=== PATIENT | male | born 1970 | race Caucasian/White ===

== ENCOUNTER 2017-07-19 00:53 | Emergency (ER) | payer SELFPAY ==
[2017-07-19 00:54] VITALS: BP 172/111; PULSE 89; RESP 17; TEMP 36.9; O2SAT 98; BMI 36.6
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
[2017-07-19 02:04] LABS: Absolute Lymphocyte Count 1.49 X10^3/ul (0.83-4.51); Absolute Neutrophil Count 3.6 X10^3/uL (2.0-7.7); Basophil# 0.03 X10^3/uL; Basophil% 0.4 % (0-1); Eosinophil# 0.05 X10^3/uL; Eosinophils% 0.7 % (0-5); Hematocrit 40.4 % (40-54); Hemoglobin 16.2 g/dl (13.0-16.5); Lymphocyte # 1.49 X10^3/ul (4.0); Lymphocyte % 21.1 % (19-41); Mean Corp Hgb Conc 40.1 g/gl (32-36); Mean Corpuscular Hgb 33.7 pg (27.0-32.0); Mean Platelet Vol. 10.8 fl (6.2-12.0); Monocyte# 1.84 X10^3/uL; Monocyte% 26.1 % (0-10); Neutrophil # 3.64 X10^3/uL (2.7-7.7); Neutrophil % 51.6 % (47-70); Platelet Count 230 K/mm3 (150-450); RBC Distribution Width CV 13.7 % (11.6-14.6); RBC Distribution Width SD 41.3 fl (35.1-43.9); Red Blood Count 4.81 M/mm3 (4.6-6.2); White Blood Count 7.1 K/mm3 (4.4-11.0)
[2017-07-19 02:06] VITALS: BP 153/105; PULSE 89; RESP 17; O2SAT 95
[2017-07-19 02:06] LABS: Differential Indicated SCAN CRITERIA MET; POSITIVE COUNT YES; POSITIVE DIFFERENTIAL YES; POSITIVE MORPHOLOGY YES
[2017-07-19 02:11] LABS: Bedside Glucose 179 mg/dL (70-110)
[2017-07-19 02:20] LABS: Differential Comment SCANNED
[2017-07-19 02:21] LABS: Reactive Lymphocyte 1+
[2017-07-19 03:43] LABS: Anion Gap 11 (5-15); BUN 12 mg/dL (7-18); Calcium,Total 8.4 mg/dL (8.5-10.1); Chloride 102 mmol/L (98-107); Creatinine, Serum 1.09 mg/dL (0.70-1.30); EST Glomerular Filtration Rate 77 mL/min (>60); Est Glom Filt Rate - Afr Amer 93 mL/min (>60); Estimated Creatinine Clearance 87.44 ml/min; Glucose 183 mg/dL (74-106); Potassium 4.9 mmol/L (3.5-5.1); Sodium Level 138 mmol/L (136-145)
[2017-07-19 03:57] VITALS: BP 149/90; PULSE 87; RESP 20; O2SAT 96
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
--- NOTE | 2017-07-19 04:10 | ED.RN ---
NO OLD EKG'S IN MUSE
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
[2017-07-19 04:23] VITALS: BP 146/97; PULSE 85; RESP 14; O2SAT 95
[2017-07-19 04:24] VITALS: BP 146/97; PULSE 92; RESP 17; O2SAT 98
== END 2017-07-19 04:30 | disposition home or self-care (01) ==
PROVIDERS: Emergency Provider Emergency Medicine
DX: S06.0X9A Concussion with loss of consciousness of unspecified duration, initial encounter (principal); M25.512 Pain in left shoulder; V49.9XXA Car occupant (driver) (passenger) injured in unspecified traffic accident, initial encounter; Y93.9 Activity, unspecified; Y92.9 Unspecified place or not applicable; Y99.9 Unspecified external cause status; E11.9 Type 2 diabetes mellitus without complications; Z79.84 Long term (current) use of oral hypoglycemic drugs; Z79.899 Other long term (current) drug therapy; Z87.19 Personal history of other diseases of the digestive system
CPT/HCPCS: 70450; 71045; 73030; 80048; 80320; 82962; 85025; 93005; 96360; 96361; 99284; J7040; A4216; G0480

== ENCOUNTER 2018-10-04 03:35 | Emergency (ER) | payer OTHER, SELFPAY ==
[2018-10-04 03:36] VITALS: BP 171/100; PULSE 107; RESP 18; TEMP 36.8; O2SAT 98; BMI 35.1
--- NOTE | 2018-10-04 03:59 | EKG12_ITS ---
Test Reason : SYNCOPE Blood Pressure : / mmHG Vent. Rate : 105 BPM Atrial Rate : 105 BPM P-R Int : 142 ms QRS Dur : 104 ms QT Int : 316 ms P-R-T Axes : 029 -16 019 degrees QTc Int : 417 ms Sinus tachycardia Minimal voltage criteria for LVH, may be normal variant Borderline ECG Confirmed by CLEMENTINE DE LEON ([id number]), editor in chief newspaper [employer] CANDELARIO ([id number]) on 10/06/2018 1:45:14 PM Referred By: VEL Confirmed By:CLEMENTINE DE LEON
--- NOTE | 2018-10-04 04:27 | CT_ITS ---
STUDY: CT BRAIN WITHOUT CONTRAST REASON FOR EXAM: Male, 48 years old. Headache and possible loss of consciousness at work. RADIATION DOSAGE (If Supplied By Facility): CTDIvol = ( 44.99 ) mGy, DLP = ( 762.36 ) mGycm TECHNIQUE: Transaxial CT imaging of the brain was performed without administration of intravenous contrast material. Individualized dose optimization techniques were used for this CT. COMPARISON: July 19, 2017. FINDINGS: Normal soft tissue structures. Normal calvarium. Normal size ventricles and extra-axial spaces for the patient's age. Normal white matter tracts of the cerebral hemispheres. Normal basal ganglia and thalami. Normal brainstem. Normal cerebellum. There is no intracranial hemorrhage. There are no findings of an acute ischemic infarction. Normal visualized paranasal sinuses. CT/Brain/Head without Contrast IMPRESSION: Normal unenhanced CT scan of the brain. Electronically Signed: Abdiel Sanders MD at 5:16 EDT , Service support ,
[2018-10-04 04:29] LABS: Absolute Lymphocyte Count 1.99 X10^3/ul (0.83-4.51); Absolute Neutrophil Count 4.4 X10^3/uL (2.0-7.7); Basophil# 0.02 X10^3/uL; Basophil% 0.3 % (0-1); Eosinophil# 0.07 X10^3/uL; Hematocrit 43.2 % (40-54); Hemoglobin 15.1 g/dl (13.0-16.5); Lymphocyte # 1.99 X10^3/ul (4.0); Lymphocyte % 29.4 % (19-41); Mean Corpuscular Hgb 29.3 pg (27.0-32.0); Mean Corpuscular Volume 83.7 fL (80-94); Mean Platelet Vol. 11.5 fl (6.2-12.0); Monocyte# 0.29 X10^3/uL; Monocyte% 4.3 % (0-10); Neutrophil # 4.38 X10^3/uL (2.7-7.7); Neutrophil % 64.6 % (47-70); Platelet Count 201 K/mm3 (150-450); RBC Distribution Width CV 12.7 % (11.6-14.6); RBC Distribution Width SD 38.6 fl (35.1-43.9); Red Blood Count 5.16 M/mm3 (4.6-6.2); White Blood Count 6.8 K/mm3 (4.4-11.0)
[2018-10-04 04:31] LABS: POSITIVE COUNT NO; POSITIVE DIFFERENTIAL NO; POSITIVE MORPHOLOGY NO
[2018-10-04 04:58] LABS: Anion Gap 10 (5-15); BUN 11 mg/dL (7-18); BUN/Creat Ratio 7.5 RATIO (10-20); Calcium,Total 9.6 mg/dL (8.5-10.1); Chloride 101 mmol/L (98-107); Creatinine, Serum 1.47 mg/dL (0.70-1.30); EST Glomerular Filtration Rate 55 mL/min (>60); Est Glom Filt Rate - Afr Amer 66 mL/min (>60); Estimated Creatinine Clearance 66.16 ml/min; Glucose 322 mg/dL (74-106); Potassium 4.8 mmol/L (3.5-5.1); Sodium Level 135 mmol/L (136-145)
[2018-10-04 05:13] VITALS: PULSE 99; RESP 16; O2SAT 97
--- NOTE | 2018-10-04 05:36 | ED.VISSUMM ---
- ER Visit Summary Date of Service: 10/04/18 Chief Complaint: Headache History of Present Illness: The patient is a 48 M who presents with headache and syncope. He does have a history of migraines. He recently switched to third shift. He had not eaten since about noon. He began to develop a headache at work. He took his usual medication which is Excedrin Migraine. He then had a syncopal episode. He states this did happen once 3 weeks ago. At that time it was attributed to hypoglycemia as his blood sugar was only 68 after oral glucose. He was evaluated at the emergency department at that time. Patient notes that after returning to consciousness today he was given 64 ounces of Mountain Dew which he quickly drank and his blood sugar was only 211 after that so he suspects that his blood sugar was low before. His headache is typical in character and location to previous migraines. Physical Examination: Heart rate 107 blood pressure 171/100 Moist mucous membranes Heart regular rate and rhythm Lungs clear Abdomen soft Alert No focal or lateralizing neurological deficits, normal strength and sensation Test Results: EKG shows sinus rhythm at a rate of 105. Labs notable for creatinine 1.47. Troponin is negative. CT the head is normal. Emergency Department Course and Treatment: An IV as well as fluids and Reglan was ordered. We are available to obtain blood but unable to establish an IV. Patient refused further attempts. I discussed that in addition I initially had ordered a CTA of the head to rule out aneurysm given his headache and syncope. Patient vocalized understanding and refuses further attempts at IV. He understands I cannot rule out aneurysm without CTA although CT of the head would be able to rule out hemorrhage. He vocalized understanding. He understands the associated risks. He states that this is very similar to his prior headaches and he truly does believe that this is just related to hypoglycemia. On reevaluation patient's resting comfortably. He understands return for new or worsening symptoms. The patient was discharged. Treatment Plan: [] Disposition: Discharge Impression: Headache This note was generated with popchips dictation software. It may contain incorrect words, spelling, and punctuation that were not noted in review of the chart prior to signing ED Disposition - Plan for ED Patient: Referrals: Care Physician,No Primary [Primary Care Provider] -
--- NOTE | 2018-10-04 05:38 | ED.DEP ---
ED Disposition - Plan for ED Patient: Instructions: SYNCOPE, Unk Cause, HEADACHE, Unspecified Referrals: Care Physician,No Primary [Primary Care Provider] -
[2018-10-04 05:56] VITALS: BP 134/95; PULSE 94; RESP 18; O2SAT 97
== END 2018-10-04 06:09 | disposition home or self-care (01) ==
LOC: ED 04:26
PROVIDERS: Emergency Provider Emergency Medicine
DX: G43.909 Migraine, unspecified, not intractable, without status migrainosus (principal); R55 Syncope and collapse; E66.9 Obesity, unspecified; E11.9 Type 2 diabetes mellitus without complications; E78.00 Pure hypercholesterolemia, unspecified; Z79.84 Long term (current) use of oral hypoglycemic drugs; Z79.899 Other long term (current) drug therapy
CPT/HCPCS: 70450; 80048; 84484; 85025; 93005; 99285; A4216

== ENCOUNTER 2024-05-30 22:41 | Emergency (ER) | payer SELFPAY ==
[2024-05-30 22:45] VITALS: BP 182/112; PULSE 100; RESP 18; TEMP 36.8; O2SAT 96; BMI 33.5
--- NOTE | 2024-05-30 23:20 | EKG12_ITS ---
Test Reason : DYSRHYTHMIA Blood Pressure : */* mmHG Vent. Rate : 92 BPM Atrial Rate : 92 BPM P-R Int : 128 ms QRS Dur : 106 ms QT Int : 344 ms P-R-T Axes : 14 -14 9 degrees QTcB Int : 425 ms Normal sinus rhythm Minimal voltage criteria for LVH, may be normal variant ( R in aVL ) Borderline ECG Confirmed by Dima Orellana ([id number]), video effects editor HANY CAMPBELL ([id number]) on 06/01/2024 6:57:12 AM Referred By: Confirmed By: Dima Orellana
--- NOTE | 2024-05-30 23:20 | CT_ITS ---
PROCEDURE: BRAIN/HEAD WITHOUT CONTRAST REASON FOR EXAM: Headache TECHNIQUE: Head CT without intravenous contrast. COMPARISON: CT brain dated 10/04/2018 FINDINGS: There is no acute intracranial hemorrhage, mass effect, or evidence of large acute infarct. Brain: Normal CSF Spaces: Normal Sinuses/Mastoids: Clear at visualized levels Bones: Unremarkable CT/Brain/Head without Contrast IMPRESSION: NO ACUTE FINDINGS One or more dose reduction techniques were used (e.g., Automated exposure contr ol, adjustment of the mA and/or kV according to patient size, use of iterative reconstruction technique). [facility]
[2024-05-30 23:30] VITALS: BP 147/97; O2SAT 95
--- NOTE | 2024-05-30 23:31 | EDS_ITS ---
HPI History of Present Illness Chief Complaint: Mental Status Change Informant: patient, family and EMS Narrative Narrative: Patient is a 54-year-old male with reported past medical history of hypertension migraine headache and hydrocephalus. Reportedly EMS was called by family secondary to change in mental status. The patient states that he and his are having difficulty he has been very stressed recently and and has been crying throughout the day and has a migraine headache at this time. He states he took Excedrin to help with the headache but denies that there was any intent of self- harm. He denies any alcohol use or illicit drug use as well and states he is simply here based on family's concern [facility] Medical History (Updated 05/31/24 @ 01:[address] Jose Mathews, DO) Hydrocephalus Home Medications ?Medication ?Instructions ?Recorded ?Last Taken ?Type metformin 1,000 mg tablet 1,000 mg PO DAILY 05/20/16 U nknown History [id number] 300 mcg-K 60 1 ea PO DAILY 05/20/16 Unknown History mcg-lycop 600 mcg-lutein 300 mcg tablet (Men 50 Plus Multivitamin) fenofibrate nanocrystallized 145 145 mg PO DAILY 10/04 Unknown History mg tablet glimepiride 4 mg tablet 4 mg PO DAILY 10/04/18 Unkno wn History niacin (inositol niacinate) 500 mg 500 mg PO DAILY 12/15 Unknown History capsule Allergy/AdvReac Type Severity Reaction Status Date / Time venom-wasp (wasp) Allergy Severe Anaphylaxis Verified 05/30/24 22:44 Social History Smoking Status: Never smoker ROS ROS ED Constitutional Constitutional ED: Denies chills or fever(s) Eyes Eyes: Reports other Details: Positive photophobia ENT ENT ED: Denies sore throat Cardiovascular Cardiovascular: Denies chest pain, palpitations or racing heartbeat Respiratory/Chest Respiratory/Chest: Denies cough or dyspnea Gastrointestinal Gastrointestinal: Denies abdominal pain, diarrhea, nausea or vomiting Genitourinary Genitourinary ED: Denies dysuria Musculoskeletal Musculoskeletal: Denies neck pain Integumentary Denies rash Neurologic Neurologic: Reports headache(s); Denies paresthesias or weakness Psychiatric Psychiatric: Denies suicidal ideation or suicidal thoughts Hematologic/Lymphatic Hematologic/Lymphatic: Denies easy bleeding or easy bruising EXAM Physical Exam Const Vital Signs: 05/30/24 22:45 05/30/24 23:30 05/30/24 23:45 Temperature 98.2 F Temperature Source Oral Pulse Rate 100 90 Respiratory Rate 18 Blood Pressure 182/112 H 147/97 H 150/95 H Blood Pressure Mean 135 113 110 Pulse Ox 96 95 95 Oxygen Delivery Method Room Air 05/31/24 00:00 05/31/24 01:00 Temperature Temperature Source Pulse Rate 87 67 Respiratory Rate 18 12 Blood Pressure 150/95 H 112/87 H Blood Pressure Mean 113 95 Pulse Ox 96 98 Oxygen Delivery Method Room Air Room Air Positive well nourished and well developed General Appearance ED: well developed; Negative for pallor HEENT HEENT Narrative: Normocephalic atraumatic Eyes PERRL and EOMs intact bilaterally General Eye ED: Negative for scleral icterus Neck supple Neck Narrative: No nuchal rigidity or meningeal signs Resp normal respiratory effort and clear to auscultation bilaterally Cardio regular rate and regular rhythm Rate: other Other Details: Radial and carotid pulses are equal and symmetric GI normal to inspection, nondistended, normoactive bowel sounds, non-tender, non- distended and no masses GI Narrative: No voluntary guarding or rigidity or pulsatile mass Auscultation: normoactive bowel sounds Palpation: soft Extremity normal to inspection Neuro oriented x3, CN's II-XII intact bilaterally and no sensory deficits noted Neuro Narrative: Patient is awake alert and oriented to person place and time GCS of 15 Cranial nerves II through XII are grossly intact without focal neurologic deficit No pronator drift no dysmetria no truncal ataxia NIH stroke scale score of 0 Sensorium / Orientation: alert Motor Exam: strength 5/5 throughout Psych Psych Narrative: Patient has a depressed/flat affect However no homicidal or suicidal ideations reported Mood & Affect: depressed Skin no rashes or lesions noted General Skin Exam: Negative for jaundice or pallor MDM MDM MDM Narrative Medical decision making narrative: Patient arrived to the ER hypertensive but otherwise with stable vitals and also reported he did not take his blood pressure medications today. EMS states they were called for altered mental status but patient reports that he simply has had a migraine and has been depressed. Upon arrival to the ER he is awake alert and oriented person place and time. He does admit to taking [id number] headache medication but states there is no self-harm or intent behind this. Based on his physical exam in the ER he does not have findings concerning for hypertensive encephalopathy. In order to ensure that his headache is not secondary to a spontaneous subarachnoid or subdural hemorrhage or brain mass a CT scan was ordered. In order to rule out acute coronary syndrome associated hypertension an EKG was obtained. In order to assess for potential illicit drug use as the cause of reported change in mental status a urine drug screen was ordered. I did discuss with patient the necessity of also obtaining basic laboratory studies to ensure there are no findings of electrolyte abnormality acute kidney injury signs of liver damage alcohol ingestion or a toxic Tylenol level as a cause of the symptoms. The patient states that he does not like needles and he is refusing blood work at this time. As he is awake alert and oriented to person place and time without homicidal or suicidal ideation or obvious signs of intoxication I cannot force him to undergo further testing. The patient's head CT revealed no acute findings his EKG was sinus rhythm without findings of ischemia or ectopy and urine tox screen was negative. Without any medication the patient's blood pressure improved. On repeat evaluation he remains awake alert and oriented to person place and time with normal neurologic exam. He still denies any homicidal or suicidal ideation. We discussed once again obtaining labs to ensure there is nothing that is missed as a potential cause of his symptoms but he does not want any further testing and as he is not homicidal or suicidal or showing signs of intoxication or altered mental status I cannot force him to undergo the testing and therefore he will be discharged as requested. History & Record Review Discussion w/independent historian: EMS personnel, Patient and Family Lab Data Attestation: I reviewed the patient's lab results. Labs: Laboratory Results - last 24 hr 05/31/24 00:05 Urine Opiates Screen NEGATIVE U Buprenorphine Qual NEGATIVE Ur Oxycodone Screen NEGATIVE Urine Methadone Screen NEGATIVE Urine Fentanyl Screen NEGATIVE Ur Barbiturates Screen NEGATIVE Ur Phencyclidine Scrn NEGATIVE Ur Amphetamines Screen NEGATIVE U Benzodiazepines Scrn NEGATIVE Urine Cocaine Screen NEGATIVE U Cannabinoids Screen NEGATIVE Radiography Diagnostic Testing: Clinical Impression(s) from Imaging Studies Brain CT 05/30/24 23:20 IMPRESSION: NO ACUTE FINDINGS One or more dose reduction techniques were used (e.g., Automated exposure control, adjustment of the mA and/or kV according to patient size, use of iterative reconstruction technique). Reading Location: [facility] Discharge Plan Triage Chief Complaint: Mental Status Change ED Provider: Jose Mathews Dx/Rx/DC Orders Clinical Impression: Cephalgia, Hypertension Instructions: Understanding Headache Pain, Hypertension Dc Prescriptions: No Action metformin 1,000 MG tablet 1,000 mg PO DAILY [id number] [Men 50 Plus Multivitamin] 1 EACH tablet 1 ea PO DAILY glimepiride 4 MG tablet 4 mg PO DAILY fenofibrate nanocrystallized 145 MG tablet 145 mg PO DAILY niacin (inositol niacinate) 500 MG capsule 500 mg PO DAILY Primary Care Provider: Jacob Mejía [facility] Referrals: Care Physician,No Primary [Non-Staff] - Activity Restrictions/Additional Instructions: Please follow-up with your family doctor for repeat evaluation and return to the ER should you have any further concerns Print Language: Kinyarwanda Disposition Disposition: Home, Self Care Discharge Date/Time: 05/31/24 01:09
[2024-05-30 23:45] VITALS: BP 150/95; PULSE 90; O2SAT 95
[2024-05-31] VITALS: BP 150/95; PULSE 87; RESP 18; O2SAT 96
[2024-05-31 00:32] LABS: Amphetamine Urine NEGATIVE (<1000 ng/mL); Barbiturate Urine NEGATIVE (< 200 ng/mL); Benzodiazepine Urine NEGATIVE (< 200 ng/mL); Buprenorphine Urine NEGATIVE (< 200 ng/mL); Cocaine Urine NEGATIVE (< 300 ng/mL); Fentanyl, Urine NEGATIVE; Methadone Urine NEGATIVE (< 300 ng/mL); Opiates Urine NEGATIVE (< 300 ng/mL); Oxycodone, Urine NEGATIVE (< 100 ng/mL); PCP Urine NEGATIVE (< 25 ng/mL); THC Urine NEGATIVE (< 50 ng/mL)
[2024-05-31 01:00] VITALS: BP 112/87; PULSE 67; RESP 12; O2SAT 98
== END 2024-05-31 01:09 | disposition home or self-care (01) ==
PROVIDERS: Emergency Provider Emergency Medicine; PCP Nurse Practitioner Family; Visit Provider Emergency Medicine
DX: R51.9 Headache, unspecified (principal); I10 Essential (primary) hypertension; Z79.899 Other long term (current) drug therapy
CPT/HCPCS: 70450; 80307; 93005; 99284

== ENCOUNTER 2025-01-24 15:08 | Emergency (ER) | payer SELFPAY ==
[2025-01-24 15:09] VITALS: BP 160/115; PULSE 103; RESP 16; TEMP 36.3; O2SAT 98
[2025-01-24 15:51] VITALS: BMI 32.8
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
--- NOTE | 2025-01-24 16:15 | RAD_ITS ---
PROCEDURE: RAD/Cerv Spine 2 or 3 Views
[2025-01-24 17:17] VITALS: BP 157/94; PULSE 89; RESP 20; TEMP 36.8; O2SAT 97
== END 2025-01-24 17:18 | disposition home or self-care (01) ==
PROVIDERS: Emergency Provider Emergency Medicine; PCP Nurse Practitioner Family; Visit Provider Emergency Medicine
DX: S13.4XXA Sprain of ligaments of cervical spine, initial encounter (principal); E11.9 Type 2 diabetes mellitus without complications; V49.49XA Driver injured in collision with other motor vehicles in traffic accident, initial encounter; I10 Essential (primary) hypertension; Z79.84 Long term (current) use of oral hypoglycemic drugs
CPT/HCPCS: 72040; 99284